=== PATIENT | male | born 1950 ===

== ENCOUNTER 2019-06-15 23:01 | Emergency (ER) | payer MEDICARE ==
[2019-06-15 23:15] VITALS: BP 132/90
--- NOTE | 2019-06-15 23:37 | Emergency Department Report ---
Upper Extremity - HPI Chief Complaint: Extremity Problem,Nontraumatic Stated Complaint: RT HAND PAIN Time Seen by Provider: 06/15/19 23:32 Upper Extremity: Right Wrist, Right Hand Occurred When: Today Mechanism: Unsure Severity: severe Symptoms: Yes Pain with Movement, Yes Limited Range of Movement, Yes Swelling, No Deformity, No Numbness, No Weakness, No Bruising/Ecchymosis, No Laceration or Abrasion Other History: Patient is a 68-year-old male that presents emergency room with complaints of right hand pain and difficulty moving his fingers since this morning. Patient states his symptoms started about 8 AM. Patient denies trauma. Patient denies fall. Patient states that his fingers feel swollen. Patient states the pain is better with rest and worse with movement. Patient states the pain is a 6 out of 10. Patient denies gout. Patient states he took Aleve with some relief. Patient states he also has hydrocodone. ED Review of Systems ROS: Stated complaint: RT HAND PAIN Other details as noted in HPI Comment: All other systems reviewed and negative ED Past Medical Hx - Past Medical History Previous Medical History?: Yes Hx Hypertension: Yes Hx GERD: Yes Additional medical history: degenerative disc disease - Surgical History Past Surgical History?: No - Family History Family history: no significant - Social History Smoking Status: Never Smoker Substance Use Type: Alcohol - Medications Home Medications: Home Medications Medication Instructions Recorded Confirmed Last Taken Type methylPREDNISolone [Medrol 4MG 4 mg PO DAILY 6 Days #1 tab.ds.pk 06/16/19 Unknown Rx DOSEPAK (21 tabs)] Upper Extremity Exam - Exam General: Vital signs noted. No distress. Alert and acting appropriately. Head and Torso: No HEENT Abnormality, No Neck Tenderness, No Chest/Lungs Abnormality, No Abdominal Tenderness, No Back Tenderness Shoulder Exam: Yes Normal Range of Motion in Shoulder, No Shoulder Tenderness, No Clavicle Tenderness, No Shoulder Deformity, No AC Joint Tenderness Arm Exam: No Arm/Humerus Tenderness, No Arm Deformity Elbow: No Elbow Tenderness, No Normal Range of Motion in Elbow, No Elbow Deformity Forearm: No Forearm Tenderness, No Forearm Deformity, No Pain with Pronation, No Pain with Supination Wrist: Yes Wrist Tenderness (Tenderness over flexor tendons), Yes Normal ROM in Wrist, No Wrist Deformity, No Snuffbox Tenderness, No Pain with Axial Thumb Compression Hand: Yes Hand Tenderness (Tenderness over flexor tendons), Yes Normal ROM in Digit(s), No Hand Deformity, No Digit Tenderness, No Digit(s) Deformity, No Tendon Dysfunction CMS Exam: No Broken Skin, No Normal Distal Pulses (2+ radial pulses), No Normal Capillary Refill, No Normal Distal Sensation ED Course Vital Signs 06/15/19 23:05 Temperature 98.4 F Pulse Rate 76 Respiratory 16 Rate Blood Pressure 132/90 O2 Sat by Pulse 99 Oximetry - Reevaluation(s) Reevaluation #1: I discussed all results and clinical findings with patient. I discussed plan of care with patient. Patient agrees with plan of care. Patient is stable for discharge. Patient will be discharged home. Patient given discharge instructions. Patient voiced understanding of discharge instructions. 06/16/19 00:20 ED Medical Decision Making - Radiology Data Radiology results: report reviewed, image reviewed RIGHT HAND 2 VIEWS [id number] INDICATION: HAND AND WRIST PAIN COMPARISON: None available. FINDINGS: AP and oblique views were obtained and are slightly underpenetrated. No fractures or dislocations are seen. No soft tissue gas or foreign bodies are obvious. I do not see significant arthritic changes. - Medical Decision Making Patient is a 68-year-old male presents emergency room with hand pain. Patient had pain consistent with a hand sprain. Patient x-ray is negative for acute findings. No fractures noted. Patient was tender along the flexor tendons. Patient given a steroid pack. Patient already has hydrocodone and Aleve at home. - Differential Diagnosis Strain, sprain, fracture, tendinitis Critical care attestation.: If time is entered above; I have spent that time in minutes in the direct care of this critically ill patient, excluding procedure time. ED Disposition Clinical Impression: Tendonitis Hand pain Qualifiers: Laterality: right Qualified Code(s): M79.641 - Pain in right hand Hand sprain Qualifiers: Encounter type: initial encounter Laterality: right Qualified Code(s): S63.91XA - Sprain of unspecified part of right wrist and hand, initial encounter Disposition: - TO HOME OR SELFCARE Is pt being admited?: No Does the pt Need Aspirin: No Condition: Stable Instructions: Hand Sprain (ED) Additional Instructions: Patient to follow-up with primary care in 2 to 3 days. Patient to follow-up with orthopedist within 2 days. Patient to rest. Patient to increase water. Patient to avoid strenuous exercise or heavy lifting until cleared by orthopedist. Patient to take Tylenol or ibuprofen as needed for pain. Patient to take meds as directed. Patient to return to the ER if condition worsens, changes or new symptoms arise. Prescriptions: methylPREDNISolone [Medrol 4MG DOSEPAK (21 tabs)] 4 mg PO DAILY 6 Days #1 tab.ds.pk Referrals: PRIMARY CARE, [Primary Care Provider] - 2-3 Days TALITA GLEASON MD [Staff Physician] - 3-5 Days Time of Disposition: 01:31
--- NOTE | 2019-06-16 01:14 | XRay Report ---
RIGHT HAND 2 VIEWS 055 INDICATION: HAND AND WRIST PAIN COMPARISON: None available. FINDINGS: AP and oblique views were obtained and are slightly underpenetrated. No fractures or disloc ations are seen. No soft tissue gas or foreign bodies are obvious. I do not see significant arthritic changes. Signer Name: Jason Hinds MD Signed: 06/16/2019 1:09 AM Workstation Name: [id number]
== END 2019-06-16 01:51 | disposition home or self-care (01) ==
LOC: ED 23:01
DX: S63.91XA Sprain of unspecified part of right wrist and hand, initial encounter (principal); M77.8 Other enthesopathies, not elsewhere classified; I10 Essential (primary) hypertension; K21.9 Gastro-esophageal reflux disease without esophagitis; X58.XXXA Exposure to other specified factors, initial encounter; Y93.89 Activity, other specified; Y92.89 Other specified places as the place of occurrence of the external cause; Y99.8 Other external cause status